=== PATIENT | female | born 2000 | race Caucasian/White ===

== ENCOUNTER 2020-09-17 22:22 | Emergency (ER) | payer OTHER ==
[~2020-09-17 22:22] MED LIST: BENTYL 20MG TAB20 MG PO; COLACE 100MG C100 MG PO; DEPO-PROVE150 MG/11 IM; DOSS PO; IBUPROFEN600 MG PO; IBUPROFEN800 MG PO; NORCO 5-325 TA1 EACH PO; PHENERGAN 25 MG25 M1 PO; ZOFRAN4 MG PO; ZYRTEC10 M3 PO
[2020-09-17 23:29] LABS: HEMOGLOBIN 15.5 gm/dl (12.3-15.3); RED BLOOD COUNT 5.35 M/UL (4.00-5.10); WHITE BLOOD COUNT 5.4 K/UL (4.5-11.0)
[2020-09-17 23:48] LABS: BUN/CREATININE RATIO 12 (0-10)
[2020-09-18] MEDS ORDERED: MACROBID 100 M100 M1 PO (02:55)
[2020-09-18] MEDS ORDERED: ZOFRAN ODT 4 MG4 MG SL (02:55)
== END 2020-09-18 03:05 | disposition home or self-care (01) ==
LOC: ER1 22:22
PROVIDERS: Emergency Medicine
DX: N39.0 Urinary tract infection, site not specified (principal); F17.200 Nicotine dependence, unspecified, uncomplicated; Z20.822 Contact with and (suspected) exposure to COVID-19
CPT/HCPCS: 71045; 80053; 81001; 83605; 83690; 84703; 85025; 87040; 87086; 96374; 96375; 99284; J1885; J2405; J7030; Q9967; U0002

== ENCOUNTER 2021-05-06 16:02 | Emergency (ER) | payer OTHER ==
[~2021-05-06 16:02] MED LIST changes: +MACROBID 100 M100 M1 PO; +ZOFRAN ODT 4 MG4 MG SL
[2021-05-06 16:52] LABS: HEMOGLOBIN 14.9 gm/dl (12.3-15.3); RED BLOOD COUNT 5.35 M/UL (4.00-5.10); WHITE BLOOD COUNT 6.4 K/UL (4.5-11.0)
[2021-05-06 17:10] LABS: BUN/CREATININE RATIO 14 (0-10)
[2021-05-06] MEDS ORDERED: ONDANSETRON ODT4 MG SL (19:29)
[2021-05-06] MEDS ORDERED: TORADOL 10 MG T10 MG PO (19:29)
== END 2021-05-06 19:41 | disposition left against medical advice (07) ==
LOC: ER1 16:02
PROVIDERS: Physician Assistant
DX: R10.32 Left lower quadrant pain (principal); F17.200 Nicotine dependence, unspecified, uncomplicated; Z20.822 Contact with and (suspected) exposure to COVID-19
CPT/HCPCS: 80053; 81001; 84703; 85025; 96374; 96375; 99283; J1885; J2405; Q9967

== ENCOUNTER → 2021-11-29 | Outpatient (CLI) | payer OTHER ==
[~2021-11-29] MED LIST changes: +ONDANSETRON ODT4 MG SL; +TORADOL 10 MG T10 MG PO
== END ==
LOC: LAB 15:47
DX: R79.89 Other specified abnormal findings of blood chemistry (principal)
CPT/HCPCS: 36415; 84443